=== PATIENT | female | born 1945 | race Caucasian/White ===

== ENCOUNTER 2022-12-11 08:58 | Outpatient (CLI) | payer MEDICARE, SELFPAY ==
--- NOTE | 2022-12-11 09:15 | CRLHL7_ITS ---
For Patients: As a result of the Century Cures Act, medical imaging exams and procedure reports are released immediately into your electronic medical record. You may view this report before your referring provider. If you have questions, please contact your health care provider. BILATERAL SCREENING MAMMOGRAM WITH COMPUTER-AIDED DETECTION AND TOMOSYNTHESIS TECHNIQUE: CC and MLO views were obtained. These mammographic images have been obtained using full-field digital technique. These mammographic images were interpreted with the benefit of computer-aided detection. Breast Tomosynthesis was used in this interpretation. COMPARISON FILM: 12/10/2021, 10/03/2020, 09/23/2019. FINDINGS: There are scattered areas of fibroglandular density. IMPRESSION: There is no radiographic evidence for malignancy. ASSESSMENT: BI-RADS Category 1: Negative RECOMMENDATION: Routine screening mammogram in 1 year. A lay language report of this examination will be provided to the patient. Rayo Moy M.D. Diagnostic Radiologist [email or web address] PIPER/[email or web address] Transcribed: 1:28 p.m. PT/Dictated by: Rayo Moy MD @ 12/11/2022 10:07:00 AM (Electronically Signed)
== END 2022-12-11 08:59 | disposition home or self-care (01) ==
LOC: MAMMO 09:01
PROVIDERS: PCP Family Medicine; Visit Provider Family Medicine
DX: Z12.31 Encounter for screening mammogram for malignant neoplasm of breast (principal)
CPT/HCPCS: 77063; 77067

== ENCOUNTER 2023-01-16 08:00 | Outpatient (CLI) | payer MEDICARE, SELFPAY | END 2023-01-16 08:01 | disposition home or self-care (01) | LOC: NFLDREF 16:28 | PROVIDERS: PCP Family Medicine; Referring Provider Family Medicine; Visit Provider Family Medicine | DX: Z00.00 Encounter for general adult medical examination without abnormal findings (principal); M85.80 Other specified disorders of bone density and structure, unspecified site; F41.9 Anxiety disorder, unspecified; G47.00 Insomnia, unspecified; E78.5 Hyperlipidemia, unspecified | CPT/HCPCS: 80053; 80061; 82306 ==

== ENCOUNTER 2023-03-12 13:20 | Outpatient (CLI) | payer MEDICARE, SELFPAY ==
--- NOTE | 2023-03-12 13:30 | CRLHL7_ITS ---
For Patients: As a result of the Century Cures Act, medical imaging exams and procedure reports are released immediately into your electronic medical record. You may view this report before your referring provider. If you have questions, please contact your health care provider. DXA BONE MINERAL DENSITY STUDY Current height (in): 66.0. Weight (lb): 130.0. Menopause age: 56. Ethnicity: White. 1. Have you had a previous hip or vertebral fracture? No. 2. Have you had any fractures during your adult life which did not result from significant trauma (e.g., auto accident)? No. 3. Did either of your parents have a hip fracture? No. 4. Do you smoke? No. 5. Have you ever taken Glucocorticoids? No. 6. Do you have rheumatoid arthritis? No. 7. Do you have secondary osteoporosis? No. 8. Do you drink 3 or more alcoholic drinks per day? No. 9. Are you being treated for osteoporosis? No. 10. Have you ever taken any of the following medications: Actonel, Evista, Fosamax, Miacalcin, Reclast, Boniva, Forteo, HRT (i.e. estrogen/hormone therapy), Protelos, Prolia, Vitamin D, Calcium, other ??? please specify. ANSWER: Yes, calcium. 11. Do you have any of the following medical conditions: Anorexia or bulimia, asthma or emphysema, end stage renal disease, hyperparathyroidism, any seizure disorders, cancer, inflammatory bowel diseases, hysterectomy, other ??? please specify. ANSWER: Yes, cancer. 12. What was your maximum height (inches)? 67. 13. Do you perform weight bearing exercise regularly? No. 14. Do you regularly consume dairy products? Yes. 15. Do you drink caffeinated beverages? Yes. 16. At what age did your period start? 16. 17. Are you premenopausal? No. 18. How many full term pregnancies have you had? 3. 19. Have you ever missed your period for more than 6 months in a row (not including or menopause)? No. TECHNIQUE: Bone mineral density study was performed using the [employer]. FINDINGS: The results of the study expressed as bone mineral density (BMD) are as follows: Lumbar spine L1 to L4: BMD: 1.072 g/cm2. T-score: 0.2. Z-score: 2.7. Neck Left: BMD: 0.711 g/cm2. T-score: -1.2. Z-score: 0.9. Right: BMD: 0.670 g/cm2. T-score: -1.6. Z-score: 0.5. Total Left: BMD: 0.876 g/cm2. T-score: -0.5. Z-score: 1.3. Right: BMD: 0.853 g/cm2. T-score: -0.7. Z-score: 1.1. IMPRESSION: Osteopenia. *Comparison exams done prior to 02/2020 were performed on different unit, [email or web address]. COMPARISON: Compared with scan of 01/03/2021, the bone mineral density has decreased by 0.2 percent at the spine and increased by 6.0 percent at the hip. Compared with scan of 09/07/2018, the bone mineral density has decreased by 0.8 percent at the spine and increased by 0.6 percent at the hip. FRAX 10-year Fracture Risk Major Osteoporotic Fracture: 11 percent Hip Fracture: 2.6 percent Reported Risk Factors: [place] ) Neck BMD=0.670, BMI=21.0 Rayo Moy M.D. Diagnostic Radiologist [email or web address] PIPER/[email or web address] / be/Dictated by: Rayo Moy MD @ 03/12/2023 3:33:00 PM (Electronically Signed)
== END 2023-03-12 13:21 | disposition home or self-care (01) ==
LOC: RAD 13:20
PROVIDERS: PCP Family Medicine; Visit Provider Family Medicine
DX: M85.80 Other specified disorders of bone density and structure, unspecified site (principal); M85.89 Other specified disorders of bone density and structure, multiple sites
CPT/HCPCS: 77080

== ENCOUNTER 2024-01-21 11:16 | Outpatient (CLI) | payer MEDICARE, SELFPAY ==
--- OUTSIDE RECORDS SUMMARY | 2024-01-21 11:18 | XMS_ITS | Referral Summary ---
Author Name Unknown Organization [facility] Address [address] [place] [address] Care Team Providers Care Retail Planner Name Role Phone Elsewhere, Pcp Primary Care Provider Unavailabl e Source Comments Patient records contain information from all sites at [facility]. For routine questions regarding patient records, call [phone] during business hours, M-F 8:00 AM - 5:00 PM Central Time. Record requests for emergency care only can be directed to [phone] at any time.[facility] Allergies Active Allergy Reactions Criticality Noted Date Comments Lactic Acid Rash 06/15/2018 Silk sutures Medications Medication Sig Dispensed Refills Start Date End Date Status calcium acetate (PHOSLO) 667 mg (169 mg calcium) capsule Take 1 capsule by mouth daily with breakfast. 03/10/2013 Active multivitamin capsule Take 1 tablet by mouth daily. 09/12/2014 Active melatonin 5 mg tablet Take 5 mg by mouth at bedtime as needed (sleep). 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 Overview: Overview: Colonoscopy 12/2012 large cecal polyp, patient will make appointment at a larger center for removal Immunizations Name Administration Dates Next Due HZV (ZOSTAVAX) 01/17/2017 Influenza high dose QV(65 years or older) (PF) 1 Influenza, Quadrivalent, Adjuvanted, Preservativ e Free 07/04/2021 PCV13 03/21/2015 PPSV23 06/21/2016 RZV (SHINGRIX) 04/12/2021,01/19/2021 Tdap 08/20/2018 influenza high dose (65 years or older) (PF) ,07/04/2017 influenza vaccine QV(FLUBLOK) (18 years or older ) (PF) 06/17/2019 influenza vaccine quad (FLUZ ONE/FLUARIX) (6 months and older)(PF) 07/06/2019,06/14/2019 Social History Tobacco Use Types Packs/Day Years Used Date Smoking Tobacco: Former Cigarettes Q uit: 09/08/1969 Smokeless Tobacco: Never Tobacco Cessation:Counseling Given: Not Answered Alcohol Use Standard Drinks/Week Comments Yes 3 (1 standard drink = 0.6 oz pur e alcohol) Humiliation, Afraid, Rape, and Kick questionnair e Answer Date Recorded Within the last year, have y ou been afraid of your partner or ex-partner? No 01/15/2023 Within the last year, have y ou been humiliated or emotionally abused in other ways by your partner or ex-partner? No Within the last year, have y ou been kicked, hit, slapped, or otherwise physically hurt by your partner or ex-partner? No 01/15/2023 Within the last year, have y ou been raped or forced to have any kind of sexual activity by your partner or ex-partner? No 01/15/2023 Social Connection and Isolat ion Panel [NHANES] Answer Date Recorded In a typical week, how many times do you talk on the phone with family, friends, or neighbors? Once a week 01/15/2023 How often do you get togethe r with friends or relatives? Twice a week 01/15/2023 How often do you attend chur ch or church services? 1 to 4 times per year 01/15/2023 Do you belong to any clubs o r organizations such as mormon groups, unions, fraternal or athletic groups, or school groups? Yes 01/15/2023 How often do you attend meet ings of the clubs or organizations you belong to? More than 4 times per year 01/15/2023 Are you , , di vorced, , never , or living with a partner? 01/15/2023 AUDIT-C Answer Date Recorded Q1: How often do you have a drink containing alc ohol? 2-4 times a month 01/15/2023 Q2: How many drinks containi ng alcohol do you have on a typical day when you are drinking? 1 or 2 01/15/2023 Q3: How often do you have si x or more drinks on one occasion? Never 01/15/2023 Overall Financial Resource Strain (CARDIA) Answe r Date Recorded How hard is it for you to pa y for the very basics like food, housing, medical care, and heating? Not hard at all 01/15/2023 PHQ-2 Answer Date Recorded PHQ-2 Score 0 08/13/2019 [facility] - Occupational Stress Questionnaire Answer Date Recorded Do you feel stress - tense, restless, nervous, or anxious, or unable to sleep at night because your mind is troubled all the time - these days? Only a little 01/15/2023 Exercise Vital Sign Answer Date Recorde d On average, how many days pe r week do you engage in moderate to strenuous exercise (like a brisk walk)? 2 days 01/15/2023 On average, how many minutes do you engage in exercise at this level? 90 min 01/15/2023 Hunger Vital Sign Answer Date Recorded Within the past 12 months, y ou worried that your food would run out before you got the money to buy more. Never true 01/16/20 23 Within the past 12 months, t he food you bought just didn't last and you didn't have money to get more. Never true 01/15/2023 PRAPARE - Transportation Answer Date Re corded In the past 12 months, has l ack of transportation kept you from medical appointments or from getting medications? No 01/06 In the past 12 months, has l ack of transportation kept you from meetings, work, or from getting things needed for daily living? No 01/15/2023 Housing Stability Vital Sign Answer Evgeny e Recorded In the last 12 months, was t here a time when you were not able to pay the mortgage or rent on time? No 01/15/2023 In the last 12 months, how many places have you lived? 1 01/15/2023 In the last 12 months, was t here a time when you did not have a steady place to sleep or slept in a group home (including now)? No 01/15/2023 Nutrition Answer Date Recorded Nutrition: EVOO Fat Source No 01/15 On average, how many serving s of fruits and vegetables do you eat per day (serving size is equal to 1 cup or approximately the size of a tennis ball)? 2-3 01/15/2023 Dental Answer Date Recorded Dental: Regular Dentist Yes 01/16/20 Employment Answer Date Recorded Employment status Retired 01/15/2023 Education Answer Date Recorded What is the highest level of school you have completed or the highest degree you have received? Bachelor's degree (e.g., BA, AB, BS) 01/15/2023 Sex and Gender Information Value Date Recorded Sex Assigned at Female 01/15/2023 10:16 AM CDT Gender Identity Female 01/15/2023 10:16 AM CDT Sexual Orientation Straight 01/15/2023 10 :16 AM CDT Last Filed Vital Signs Vital Sign Reading Time Taken Comments Blood Pressure 130/79 01/13/2023 11:16 AM CDT Pulse 83 01/13/2023 11:16 AM CDT Temperature 36.4 ??C (97.5 ??F) 01/13/2023 11:16 AM C DT Respiratory Rate 18 01/13/2023 11:16 AM CDT Oxygen Saturation 98% 01/13/2023 11:16 AM CDT Inhaled Oxygen Concentration - - Weight 59 kg (130 lb 1.1 oz) 01/13/2023 11:17 AM CDT Height 168 cm (5' 6.14) 08/26/2019 11:40 AM MEASUREMENT SUPERINTENDENT Body Mass Index 20.9 08/26/2019 11:40 AM MEASUREMENT SUPERINTENDENT Plan of Treatment Not on file Procedures Procedure Name Priority Date/Time Associated Diagnosis Comments COLONOSCOPY 08/26/2019 11:17 AM MEASUREMENT SUPERINTENDENT BI BREAST DIAGNOSTIC BILATERAL Routine 09/17/1999 8:05 AM MEASUREMENT SUPERINTENDENT from Last 3 Months or Most Recently Relevant to Health Maintenance Results * COLONOSCOPY (08/26/2019 11:17 AM MEASUREMENT SUPERINTENDENT) Narrative Procedure Note Ayo De Leon M.D. - 08/26/2019 11:17 AM CST [facility] Patient Name: Lisa Lind Procedure Date: 08/26/2019 11:17 AM Date of : 1945 Age: 74 Gender: Female Procedure: Colonoscopy Providers: Ayo De Leon MD, Kenton Huntley (Ordering Provider) Referring Provider: Kenton Huntley Pre-op Diagnoses: High risk colon cancer surveillance: Personal history of adenoma (10 mm or greater in size) Post-op Diagnoses: - The entire examined colon is normal. - The distal rectum and anal verge are normal on retroflexion view. - The examination was otherwise normal. - No specimens collected. Recommendation: - Patient has a contact number available for emergencies. The signsand symptoms of potential delayed complications were discussed with the patient. Return to normal activities tomorrow. Written discharge instructions were provided to the patient. - Resume previous diet. - Continue present medications. - Repeat colonoscopy in 5 years for surveillance. - Thank you, Dr Huntley, for your referral. Findings: The perianal and digital rectal examinations were normal. The colon (entire examined portion) appeared normal. The retroflexed view of the distal rectum and anal verge was normaland showed no anal or rectal abnormalities. The exam was otherwise without abnormality. Medicines: Propofol per Anesthesia Complications: No immediate complications. Procedure Details: The patient was seen, evaluated, and history reviewed. Airway and heart and lung exams were performed and were satisfactory for plannedsedation care. The risks, benefits and alternatives for the procedure and sedation were discussed andinformed consent was obtained. A procedural pause was conducted in the presence of assisting personnelto verify the correct patient identity and procedureto be performed. Throughout the procedure, the patient's blood pressure, pulse, and oxygen saturations were monitored continuously. The 45 [id number]-[id number] was introduced under direct vision through the anus and advanced tothe cecum, identified by appendiceal orifice and ileocecal valve. The colonoscopy was performed without difficulty. The patient tolerated the procedure well. The quality of the bowelpreparation was evaluated using the BBPS ([place] Bowel Preparation Scale) with scores of: Right Colon =3, Transverse Colon = 3 and Left Colon = 3 (entire mucosa seen well with no residual staining, small fragments of stool or opaque liquid). The totalBBPS score equals 9. The ileocecal valve, appendiceal orifice, and rectum were photographed. Sedation: Anesthesia was administered by an anesthesia professional. Thefollowing parameters were monitored: oxygen saturation, heart rate, blood pressure, respiratory rate, EKG, adequacy of pulmonary ventilation,and response to care. Ayo De Leon MD 08/26/2019 12:38:23 PM This report has been signed electronically. Number of Addenda: 0 Note Initiated On: 08/26/2019 11:17 AM Kenton Huntley M.D. GI PROCEDURE ORDERA BLES * BI Breast Diagnostic Bilateral (09/17/1999 8:05 AM MEASUREMENT SUPERINTENDENT) Anatomical Region Laterality Modality Breast Bilateral Mammography 09/17/1999 8:05 AM MEASUREMENT SUPERINTENDENT Addenda Addendum by Provider, Historical on 09/18/1999 9:07 AM MEASUREMENT SUPERINTENDENT APPENDED REPORT - 18-Sep-1999 09:07:00 ADDITIONAL REPORT 09/18/1999 09:06:49 The ?? [facility] Mammogram Diag Bil[facility] was previously reported as the ?? [facility] Mammogram Screening. Electronically signed by: ?? Narrative 09/18/1999 9:07 AM MEASUREMENT SUPERINTENDENT 17-Sep-1999 08:05:00 ??Exam: [facility]amm[facility] Diag [facility] Indications: Dr Margarette Schaeffer/[id number] ORIGINAL REPORT - 18-Sep-1999 08:38:00 Compared with 07-08-97, there has been interval resolution of several large nodular densities within the right breast consistent with decompression of cysts. Scattered tiny calcifications bilaterally. Several of the calcifications have increased over the time interval. However, there is a collection in the left breast at 3 o'clock that should be further evaluated with magnification views. ?? Assessment: Incomplete: Need Additional Imaging Evaluation. (Need additional views) P1,D3,M0,L0 Electronically signed by: ?? Jia Cheng ?? 18-Sep-1999 08:38 Procedure Note Provider, Historical - 12/15/2017 17-Sep-1999 08:05:00 Exam: [facility]ammogram Diag Bilat Indications: Dr Margarette Schaeffer/[id number] ORIGINAL REPORT - 18-Sep-1999 08:38:00 Compared with 07-08-97, there has been interval resolution of severallarge nodular densities within the right breast consistent withdecompression of cysts. Scattered tiny calcifications bilaterally. Severalof the calcifications have increased over the time interval. However,there is a collection in the left breast at 3 o'clock that should befurther evaluated with magnification views. Assessment: Incomplete: Need Additional Imaging Evaluation. (Needadditional views) P1,D3,M0,L0 Electronically signed by: Jia Cheng MD 18-Sep-1999 08:38 Margarette Schaeffer M.D. IMG BI PROCEDURES from Last 3 Months or Most Recently Relevant to Health Maintenance Care Teams Retail Planner Relationship Specialty Start Date End Date Elsewhere, Pcp PCP - General Family Medicine 08/13/19
--- OUTSIDE RECORDS SUMMARY | 2024-01-21 11:18 | XMS_ITS ---
Author Name Unknown Organization [facility] Address [address] [place] [address] Care Team Providers Care Nutrition Internship Name Role Phone Unavailable Unavailable Unavailable Surgery Details Not on file Complications Check Surgery Details section. Procedure Estimated Blood Loss Check Surgery Details section. Procedure Findings Check Surgery Details section. Procedure Specimens Taken Check Surgery Details section.
--- OUTSIDE RECORDS SUMMARY | 2024-01-21 11:18 | XMS_ITS | Clinical Summary ---
Author Name Unknown Organization [facility] Address [address] [place] [address] Care Team Providers Care Social Media Executive Name Role Phone Elsewhere, Pcp Primary Care Provider Unavailabl e Source Comments Patient records contain information from all sites at [facility]. For routine questions regarding patient records, call [phone] during business hours, M-F 8:00 AM - 5:00 PM Central Time. Record requests for emergency care only can be directed to [phone] at any time.[facility] Allergies Active Allergy Reactions Criticality Noted [...] Overview: Added automatically from request for surgery [id number] Polyp Colon Adenomatous 12/21/2012 Overview: Overview: Colonoscopy [...] often do you attend chur ch or scientology services? 1 to 4 times per year 01/15/2023 Do you belong to any clubs o r organizations such as uatsdin groups, unions, fraternal or athletic groups, or [...] Answer Date Recorded PHQ-2 Score 0 08/13/2019 [facility] - Occupational Stress [...] place to sleep or slept in a residential (including now)? No 01/15/2023 Nutrition Answer Date [...] 168 cm (5' 6.14) 08/26/2019 11:40 AM MANAGER FOOD SAFETY Body Mass Index 20.9 08/26/2019 11:40 AM MANAGER FOOD SAFETY Plan of Treatment Health Maintenance Due Date Last Done Comments Hepatitis C Screening 1945 Depression Screening (Annual PHQ-2) 09/08/2023 Fall Risk Screen (Annual) 09/08/2023 COVID-19 Vaccine (2022-2 4 season) 2023 06/21/2023, 07/09/2022, 12/20/2021, Additional history exists DTaP,Tdap,and Td Vaccines (2 - Td or Tdap) 08/20/2028 08/20/2018 Mammogram Discontinued 09/08/2015 (Perf ormed elsewhere), 09/17/1999 Pneumococcal vaccine (65+ years) Completed 06/21/20 16, 03/21/2015 Colonoscopy Discontinued 08/26/2019, 07/09, 03/26/2013 Colonoscopy Discontinued 08/26/2019, 07/09, 03/26/2013 Colorectal Cancer Screening Discontinued Colorectal Cancer Surveillance Discontinued Zoster Vaccines Completed 04/12/2021, 01/06, 01/17/2017 Influenza Vaccine Completed 06/11/2023, , 07/04/2021, Additional history exists CT Colonography Discontinued CT Colonography Discontinued Cologuard Discontinued FIT Discontinued Procedures Procedure Name Priority Date/Time Associated Diagnosis Comments COLONOSCOPY 08/26/2019 11:17 AM MANAGER FOOD SAFETY BI BREAST DIAGNOSTIC BILATERAL Routine 09/17/1999 8:05 AM MANAGER FOOD SAFETY from Last 3 Months or Most Recently Relevant to Health Maintenance Results * COLONOSCOPY (08/26/2019 11:17 AM MANAGER FOOD SAFETY) Narrative Procedure Note Ayo De Leon M.D. - 08/26/2019 11:17 AM CST [facility] Patient Name: Lisa Lind Procedure Date: 08/26/2019 [...] saturations were monitored continuously. The 45 PCF-H190DL [id number] was introduced under direct vision through the anus and advanced tothe cecum, identified by appendiceal orifice and ileocecal valve. The colonoscopy was performed without difficulty. The patient tolerated the procedure well. The quality of the bowelpreparation was evaluated using the BBPS ([place] Bowel Preparation Scale) with scores of: Right [...] BI Breast Diagnostic Bilateral (09/17/1999 8:05 AM MANAGER FOOD SAFETY) Anatomical Region Laterality Modality Breast Bilateral Mammography 09/17/1999 8:05 AM MANAGER FOOD SAFETY Addenda Addendum by Provider, Historical on 09/18/1999 9:07 AM MANAGER FOOD SAFETY APPENDED REPORT - 18-Sep-1999 09:07:00 ADDITIONAL REPORT 09/18/1999 09:06:49 The ?? [facility]amm[facility] Diag Bilat was previously reported as the ?? [facility]ammogram Screening. Electronically signed by: ?? Narrative 09/18/1999 9:07 AM MANAGER FOOD SAFETY 17-Sep-1999 08:05:00 ??Exam: [facility] Mammogram Diag Bilat Indications: Dr Margarette Schaeffer/[id number] ORIGINAL REPORT - 18-Sep-1999 08:38:00 Compared with [...] [facility]ammogram Diag Bilat Indications: Dr Margarette Schaeffer/[id number] ORIGINAL REPORT - 18-Sep-1999 08:38:00 Compared with [...] Recently Relevant to Health Maintenance Care Teams Social Media Executive Relationship Specialty Start Date End Date Elsewhere, Pcp PCP - General Family Medicine 08/13/19
--- OUTSIDE RECORDS SUMMARY | 2024-01-21 11:18 | XMS_ITS | Clinical Summary ---
Author Name Unknown Organization [facility] Address [place], [place] [address] Care Team Providers Care Efficiency Miner Name Role Phone Alysia Meeks MD Primary Care Provider [phone] Allergies No known active allergies Medications No known medications Active Problems Problem Noted Date Diagnosed Date Adenomatous colon polyp 12/21/2012 Overview: Colonoscopy 12/2012 large cecal polyp, patient will make appointment at a larger center for removal Social History Tobacco Use Types Packs/Day Years Used Date Smoking Tobacco: Former Smokeless Tobacco: Never Alcohol Use Standard Drinks/Week Comments Not Asked 0 (1 standard drink = 0.6 oz pur e alcohol) Sex and Gender Information Value Date Recorded Sex Assigned at Not on file Gender Identity Not on file Sexual Orientation Not on file Obstetrics History Last Filed Vital Signs Vital Sign Reading Time Taken Comments Blood Pressure 113/74 04/21/2018 3:37 PM CDT Pulse 88 04/21/2018 3:37 PM CDT Temperature - - Respiratory Rate - - Oxygen Saturation 97% 04/21/2018 3:37 PM CDT Inhaled Oxygen Concentration - - Weight 60.4 kg (133 lb 3.2 oz) 04/21/2018 3:37 P M CDT Height - - Body Mass Index - - Plan of Treatment Health Maintenance Due Date Last Done Comments Tdap 1957 Depression screening for age 12+ 1958 BMI (ht and wt on same day) for age 18+ 1964 Hepatitis C screening for age 18-79 1964 Tetanus booster 1966 Zoster (shingles) series for age 50+ (1 of 2) 06/09/19 96 DEXA/DXA scan for age 65+ 2011 Pneumococcal series for age 65+ (1 of 1 - PCV) 011 COVID-19 vaccine series ( - 2022-24 season) 3 Influenza for age 65+ 05/09/2024 Care Teams Efficiency Miner Relationship Specialty Start Date End Date Alysia Meeks MD [address] [place] [address] PCP - General 10/13/06
--- NOTE | 2024-01-21 11:30 | MM_ITS ---
Patient: ZULEYMA CALL Facility:?[facility] Patient ID:?[id number] Site Patient ID:?[id number] Site :?[id number] Study:?XRay-Breast Bilateral 3D W/CAD-01/21/2024 11:39:05 AM Ordering Physician:?Jemma Shah Final Report: BILATERAL SCREENING MAMMOGRAM WITH COMPUTER-AIDED DETECTION AND TOMOSYNTHESIS TECHNIQUE: CC and MLO views were obtained. These mammographic images have been obtained using full-field digital technique. These mammographic images were interpreted with the benefit of computer-aided detection. Breast Tomosynthesis was used in this interpretation. COMPARISON FILM: 12/11/22, 12/10/21, 10/03/20. FINDINGS: There are scattered areas of fibroglandular density. IMPRESSION: There is no radiographic evidence for malignancy. ASSESSMENT: BI-RADS Category 1: Negative RECOMMENDATION: Routine screening mammogram in 1 year. A lay language report of this examination will be provided to the patient. Rayo Moy M.D. Diagnostic Radiologist [email or web address] DSM/sp D& Transcribed: 7:28 p.m. SP/Dictated by: Rayo Moy MD @ 01/21/2024 12:05:00 PM Signed by:?Rayo Moy MD @01/21/2024 7:45:49 PM (Electronic Signature)
== END 2024-01-21 11:17 | disposition home or self-care (01) ==
LOC: MAMMO 11:17
PROVIDERS: PCP Family Medicine; Visit Provider Family Medicine
DX: Z12.31 Encounter for screening mammogram for malignant neoplasm of breast (principal); Z00.00 Encounter for general adult medical examination without abnormal findings; E78.5 Hyperlipidemia, unspecified; F41.9 Anxiety disorder, unspecified; M85.80 Other specified disorders of bone density and structure, unspecified site; R42 Dizziness and giddiness; G47.00 Insomnia, unspecified
CPT/HCPCS: 77063; 77067; 80061; 82306; 82947

== ENCOUNTER 2024-07-23 09:20 | Outpatient (CLI) | payer MEDICARE, SELFPAY ==
--- OUTSIDE RECORDS SUMMARY | 2024-07-23 09:27 | XMS_ITS | Clinical Summary ---
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 Overview (12/21/2012): Colonoscopy 12/2012 large cecal polyp, patient will make appointment at a larger center for removal Social History Tobacco Use Types Packs/Day Years Used Date Smoking Tobacco: Former Smokeless Tobacco: Never Tobacco Cessation:Counseling Given: Yes Alcohol Use Standard Drinks/Week Comments Not Asked 0 (1 standard drink = 0.6 oz pur e alcohol) Sex and Gender Information Value Date Recorded Sex Assigned at Not on file Gender Identity Not on file Sexual Orientation Not on file Obstetrics History Last Filed Vital Signs Vital Sign Reading Time Taken Comments Blood Pressure 124/72 03/23/2024 2:36 PM CDT tow er Pulse 91 03/23/2024 2:36 PM CDT Temperature - - Respiratory Rate - - Oxygen Saturation 98% 03/23/2024 2:36 PM CDT Inhaled Oxygen Concentration - - Weight 58.5 kg (129 lb) 03/23/2024 2:36 PM CDT Height - - Body Mass Index - - Plan of Treatment Health Maintenance Due Date Last Done Comments Tdap 1957 Depression screening for age 12+ 1958 BMI (ht and wt on same day) for age 18+ 1964 Hepatitis C screening for ag e 18-79 1964 Tetanus booster 1966 Zoster (shingles) series for age 50+ (1 of 2) 1996 DEXA/DXA scan for age 65+ 2011 Medicare Wellness for age 65+ 2011 Pneumococcal series for age 65+ (1 of 1 - PCV) 2011 RSV vaccine for adults or (1 - 1-dose 75+ series) 2021 COVID-19 vaccine series ( season) 2024 11/19/2023, 06/21/2023, 07/09/2022, Additional history exists Influenza for age 65+ 05/09/2024 Care Teams Consumer Banker Relationship Specialty Start Date End Date Constantino, Alysia Saleem MD [address] [place] [address] PCP - General 10/13/06
== END 2024-07-23 09:21 | disposition home or self-care (01) ==
PROVIDERS: PCP Family Medicine; Visit Provider Family Medicine
DX: R53.83 Other fatigue (principal); Z13.228 Encounter for screening for other metabolic disorders; Z13.29 Encounter for screening for other suspected endocrine disorder
CPT/HCPCS: 80053; 84443

== ENCOUNTER 2025-01-25 17:16 | Outpatient (CLI) | payer MEDICARE, SELFPAY ==
--- NOTE | 2025-01-25 17:40 | CRLHL7_ITS ---
For Patients: As a result of the Century Cures Act, medical imaging exams and procedure reports are released immediately into your electronic medical record. You may view this report before your referring provider. If you have questions, please contact your health care provider. BILATERAL DIGITAL SCREENING MAMMOGRAM WITH COMPUTER-AIDED DETECTION AND TOMOSYNTHESIS CLINICAL HISTORY: Routine screening exam. COMPARISON: 01/21/2024, 12/11/2022, 12/10/2021 TECHNIQUE: Digital mammogram in CC and MLO projections including computer-aided detection (CAD). Tomosynthesis was used in this interpretation. BREAST COMPOSITION: The breasts are heterogeneously dense, which may obscure small masses. FINDINGS: RIGHT Breast: Focal asymmetric density upper outer quadrant 5 cm from the nipple. LEFT Breast: No suspicious findings. IMPRESSION: RIGHT breast asymmetry/mass. RECOMMENDATIONS: Additional mammographic views of the RIGHT breast including 3D spot compression CC/MLO. RIGHT breast ultrasound may also be required. The [facility] will contact the patient. A lay language report of this examination will be provided to the patient. BI-RADS Category 0: Incomplete: Need Additional Imaging Evaluation Dictated by Rayo Moy MD @ 01/26/2025 12:50:58 PM Dictated by: Rayo Myo MD @ 01/26/2025 12:51:01 (Electronically Signed)
== END 2025-01-25 17:17 | disposition home or self-care (01) ==
LOC: MAMMO 17:16
PROVIDERS: PCP Family Medicine; Visit Provider Family Medicine
DX: Z12.31 Encounter for screening mammogram for malignant neoplasm of breast (principal); R92.333 Mammographic heterogeneous density, bilateral breasts; N63.10 Unspecified lump in the right breast, unspecified quadrant
CPT/HCPCS: 77063; 77067

== ENCOUNTER 2025-02-03 08:10 | Outpatient (CLI) | payer MEDICARE, SELFPAY | END 2025-02-03 08:11 | disposition home or self-care (01) | LOC: NFLDREF 02-06 12:47 | PROVIDERS: PCP Family Medicine; Referring Provider Family Medicine; Visit Provider Family Medicine | DX: Z00.00 Encounter for general adult medical examination without abnormal findings (principal); E78.5 Hyperlipidemia, unspecified; M85.80 Other specified disorders of bone density and structure, unspecified site; M81.0 Age-related osteoporosis without current pathological fracture; Z13.1 Encounter for screening for diabetes mellitus | CPT/HCPCS: 80061; 82306; 82947 ==

== ENCOUNTER 2025-02-15 10:30 | Outpatient (CLI) | payer MEDICARE, SELFPAY ==
--- NOTE | 2025-02-15 10:45 | CRLHL7_ITS ---
For Patients: As a result of the Cures Act, medical imaging exams and procedure reports are released immediately into your electronic medical record. You may view this report before your referring provider. If you have questions, please contact your health care provider. DIAGNOSTIC RIGHT MAMMOGRAM WITH COMPUTER-AIDED DETECTION AND TOMOSYNTHESIS RIGHT BREAST ULTRASOUND CLINICAL HISTORY: RIGHT breast mass/asymmetry. COMPARISON: 01/25/25, 01/21/2024, 12/11/2022. TECHNIQUE: Digital RIGHT mammogram in two projections. Tomosynthesis was used in this interpretation. Real-time ultrasound imaging of RIGHT breast with imaging documentation. Scanning was performed by both the technologist and the radiologist. BREAST COMPOSITION: The breasts are heterogeneously dense, which may obscure small masses. FINDINGS: 3D spot compression CC/MLO RIGHT breast mammogram images submitted. Decreased conspicuity of previously noted asymmetric density in the upper-outer quadrant. No architectural distortion. Benign dystrophic calcifications incidentally noted. Targeted RIGHT breast ultrasound performed in the upper-outer quadrant, 4-6 cm from the nipple. Dystrophic calcifications are noted along with dense fibroglandular tissue. No suspicious masses. IMPRESSION: No evidence of malignancy. RECOMMENDATIONS: Routine screening mammography. A lay language report of this examination will be provided to the patient. BI-RADS Category 2: Benign Dictated by Rayo Moy MD @ 02/15/2025 11:49:00 AM /sp SP/Dictated by: Rayo Moy MD @ 02/15/2025 11:49:00 AM (Electronically Signed)
--- NOTE | 2025-02-15 11:15 | CRLHL7_ITS ---
For Patients: As a result of the Century Cures Act, medical imaging exams and procedure reports are released immediately into your electronic medical record. You may view this report before your referring provider. If you have questions, please contact your health care provider. PLEASE SEE RIGHT BREAST DIAGNOSTIC MAMMOGRAM PERFORMED THE SAME DAY. CRL:sp SP/Dictated by: Rayo Moy MD @ 02/15/2025 11:49:00 AM (Electronically Signed)
== END 2025-02-15 10:31 | disposition home or self-care (01) ==
LOC: MAMMO 10:31
PROVIDERS: PCP Family Medicine; Visit Provider Family Medicine
DX: N63.10 Unspecified lump in the right breast, unspecified quadrant (principal); R92.8 Other abnormal and inconclusive findings on diagnostic imaging of breast; R92.333 Mammographic heterogeneous density, bilateral breasts
CPT/HCPCS: 76642; 77065; G0279

== ENCOUNTER 2025-04-27 13:41 | Outpatient (CLI) | payer MEDICARE, SELFPAY | END 2025-04-27 13:42 | disposition home or self-care (01) | LOC: RAD 13:42 | PROVIDERS: PCP Family Medicine; Visit Provider Internal Medicine | DX: I48.0 Paroxysmal atrial fibrillation (principal); I34.0 Nonrheumatic mitral (valve) insufficiency | CPT/HCPCS: 93306 ==

== ENCOUNTER 2025-04-28 09:28 | Outpatient (CLI) | payer MEDICARE, SELFPAY ==
--- NOTE | 2025-04-28 11:35 | P.ANES_ITS ---
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
--- NOTE | 2025-04-28 11:35 | W.ANESCHARGE ---
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
--- NOTE | 2025-04-28 11:47 | P.ANES_ITS ---
Anesthesia Charges Start Date/Time Anesthesia Start Date: 04/28/25 Anesthesia Start Time: 10:15 Stop Date/Time Anesthesia Stop Date: 04/28/25 Anesthesia Stop Time: 11:33 Summary Extremes of Age - Over 70 or under 1: MDA Coding CPT Codes CPT Codes: ANES LWR INTST NDSC NOS - 23294 ([id number]) P3 - PATIENT W/SEVERE SYS DISEASE, QK - CHIEF ACCOUNTING OFFICER 2-4 CNCRNT ANES PROC, QX - MOBILE TESTER SVC W/ MD MED DIRECTION Additional Codes: Summary - Extremes of Age - Over 70 or under 1: MDA ([id number])
--- NOTE | 2025-04-28 11:47 | W.ANESCHARGE ---
Anesthesia Charges Start Date/Time Anesthesia Start Date: 04/28/25 Anesthesia Start Time: 10:15 Stop Date/Time Anesthesia Stop Date: 04/28/25 Anesthesia Stop Time: 11:33 Summary Extremes of Age - Over 70 or under 1: MDA Coding CPT Codes CPT Codes: ANES LWR INTST NDSC NOS - 86808 ([id number]) P3 - PATIENT W/SEVERE SYS DISEASE, QK - DIRECTOR INFORMATICS 2-4 CNCRNT ANES PROC, QX - HARDENING MACHINE OPERATOR HELPER SVC W/ MD MED DIRECTION Additional Codes: Summary - Extremes of Age - Over 70 or under 1: MDA ([id number])
== END 2025-04-28 09:29 | disposition home or self-care (01) ==
LOC: OP CLINIC 09:28
PROVIDERS: PCP Family Medicine; Visit Provider Surgery
DX: Z12.11 Encounter for screening for malignant neoplasm of colon (principal); Z83.719 Family history of colon polyps, unspecified; D12.3 Benign neoplasm of transverse colon; D12.0 Benign neoplasm of cecum; D12.2 Benign neoplasm of ascending colon; K57.30 Diverticulosis of large intestine without perforation or abscess without bleeding
CPT/HCPCS: 00811; 45380; 45385; 88305; 99100; J2704